=== PATIENT | female | born 1970 | race Caucasian/White ===

== ENCOUNTER → 2020-03-02 07:41 | Outpatient (BNVA) | payer MEDICAID, SELFPAY | PROVIDERS: Family Provider Internal Medicine; Visit Provider Nurse Practitioner Psychiatric/Mental Health | DX: F33.2 Major depressive disorder, recurrent severe without psychotic features (principal); F41.1 Generalized anxiety disorder; F43.12 Post-traumatic stress disorder, chronic; F17.210 Nicotine dependence, cigarettes, uncomplicated | CPT/HCPCS: 99214 ==

== ENCOUNTER → 2020-04-13 07:37 | Outpatient (BNVA) | payer MEDICAID, SELFPAY | PROVIDERS: Family Provider Internal Medicine; Visit Provider Nurse Practitioner Psychiatric/Mental Health | DX: F33.2 Major depressive disorder, recurrent severe without psychotic features (principal); F41.1 Generalized anxiety disorder; F43.12 Post-traumatic stress disorder, chronic; F17.210 Nicotine dependence, cigarettes, uncomplicated | CPT/HCPCS: 99213 ==

== ENCOUNTER 2020-06-02 15:29 | Emergency (ER) | payer MEDICAID, SELFPAY ==
[2020-06-02 15:30] VITALS: BMI 38.0
[2020-06-02 15:34] VITALS: BP 165/106; PULSE 79; RESP 18; TEMP 36.9; O2SAT 96
--- NOTE | 2020-06-02 15:47 | ECG_ITS ---
[facility] Test Date: 2020-06-02 Pat Name: Guera Miles Department: Room: Gender: Female Flat Locker: : 1970 Requested By: Mckinley Dalal I Order Number: [id number] Ailyn MD: Katia Portillo M.D. Measurements Intervals [place] Rate: 73 P: 51 FL: 152 QRS: 13 QRSD: 82 T: 31 QT: 371 QTc: 409 Interpretive Statements SINUS RHYTHM No previous ECG available for comparison Electronically Signed On 06-03-2020 0:21:24 CDT by Katia Portillo M.D. [id number] f
--- NOTE | 2020-06-02 15:47 | XRR_ITS ---
PROCEDURE INFORMATION: Exam: XR Chest, 1 View Exam date and time: 06/02/2020 4:26 PM Age: 50 years old Clinical indication: Chest pain; Type not specified; Additional info: Chest painx 2 days TECHNIQUE: Imaging protocol: XR of the chest Views: 1 view. COMPARISON: No relevant prior studies available. FINDINGS: Lungs: Unremarkable. No consolidation. Pleural space: Unremarkable. No pleural effusion. No pneumothorax. Heart/Mediastinum: Unremarkable. No cardiomegaly. Bones/joints: Unremarkable. XR/XR chest 1V portable [id number] IMPRESSION: No acute findings.
--- NOTE | 2020-06-02 15:50 | ED_ITS ---
HPI - Chest Pain General: Chief Complaint: Chest Pain Stated Complaint: CHEST PAIN X 2 DAYS Time Seen by Provider: 06/02/20 15:42 Source: patient and EMS Mode of arrival: EMS Limitations: no limitations History of Present Illness: HPI narrative: She also feels dizzy. She smokes but she is trying to quit. complaint: chest pain Onset (ago): day(s) (2) Timing of current episode: constant Prior episodes: No Onset: during rest Pain location: substernal Pain radiation: neck and left shoulder Severity: severe Quality: sharp Relieving factors: nothing Exacerbating factors: nothing Associated symptoms: Reports dyspnea and nausea; Deny fever(s) or palpitations Treatment prior to arrival: none Review of Systems General: Reports: 10 or more systems reviewed and unremarkable except in HPI and below Const: Denies: fever(s), chills or body aches Eyes: Denies: change in vision or blurry vision ENMT: Denies: throat pain, enlarged tonsils, odynophagia, hoarseness, mouth pain or swelling of lips/tongue Card: Reports: chest pain; Denies: palpitations, irregular heart rhythm, edema or swelling of feet/ankles Resp: Reports: dyspnea GI: Reports: nausea : Denies: flank pain, difficulty voiding, dysuria, urinary frequency, urinary urgency or urinary hesitancy Musc: Denies: neck pain, back pain or extremity swelling Skin/Breast: Denies: rash, pruritus or erythema Neuro: Reports: dizziness; Denies: headache(s), numbness in extremities or weakness in extremities Endo: Denies: polyuria, polydipsia or tired all the time [facility] ED PFSH: Medical History Chronic post-traumatic stress disorder Fibromyalgia Generalized anxiety disorder Major depressive disorder, recurrent severe without psychotic features Nicotine dependence, cigarettes, uncomplicated Physical Exam Const: COMMON NORMALS: no acute distress, average body habitus, patient oriented x3, no limitations, healthy appearing, alert and well nourished HENMT: COMMON NORMALS: normocephalic, atraumatic and moist oral mucous membranes HEAD & SCALP: normocephalic and atraumatic Eye: COMMON NORMALS: Equal, round and reactive pupils present, EOMs intact bilaterally, conjunctivae normal and no scleral icterus CONJUNCTIVA: Yes conjunctivae normal PUPIL: Yes Equal, round and reactive pupils present Neck/C-Spine: COMMON NORMALS: full ROM, supple, no meningeal signs, no JVD and No carotid bruits Chest: COMMONS NORMALS: normal inspection of the chest and normal palpation of entire chest wall Resp: COMMON NORMALS: normal respiratory effort, No retractions, No use of accessory muscles, clear to auscultation bilaterally and percussion normal AUSCULTATION: clear to auscultation bilaterally PERCUSSION: percussion normal Cardio: COMMON NORMALS: no JVD, regular rate, regular rhythm, S1 normal heart sound present, S2 normal heart sound present, No gallops present (Cardio), No clicks present (Cardio), No murmurs present (Cardio), No rub (Cardio) and Peripheral pulses 2+ throughout RATE: regular rate RHYTHM: regular rhythm HEART SOUNDS: S1 normal heart sound present and S2 normal heart sound present PERIPHERAL PULSES: Peripheral pulses 2+ throughout GI: COMMON NORMALS: Normal to inspection, nondistended, normoactive bowel sounds present, Soft to palpation, non-tender, No hepatosplenomegaly present, no masses and no bruits PALPATION: Yes Soft to palpation and Yes No hepatosplenomegaly present : COMMON NORMALS: Yes no CVA tenderness BLADDER/KIDNEY EXAM: Yes no CVA tenderness Back/Pelvis: COMMON NORMALS: no CVA tenderness Extremity: COMMON NORMALS: normal to inspection, full ROM, capillary refill normal, no calf tenderness and no pedal edema Neuro: COMMON NORMALS: patient oriented x3 SENSORIUM/ORIENTATION: Yes alert MENINGEAL SIGNS: Yes no meningeal signs Psych: MOOD & AFFECT: Yes anxious Skin: COMMON NORMALS: no rashes or lesions noted, no wounds, turgor normal, no jaundice, no petechiae and no mottling GENERAL SKIN EXAM: no rashes or lesions noted and turgor normal Course Reevaluation(s): Reevaluation #1: Discussed her lab and imaging findings with her. Troponin negative, other labs unremarkable. Chest x-ray negative. However she obtained relief following the nitro and I therefore think she will benefit from a stress test. Will order an outpatient stress test and depending on the results her primary care provider will refer her for further management. I discussed her heart score with her and explained that she is low risk. She is advised to return for any concerns. She voiced understanding and is in agreement with the plan. Time: 17:00 Vital Signs: Vital signs: Vital Signs Temperature 98.5 F 06/02/20 15:34 Pulse Rate 79 06/02/20 15:34 Respiratory Rate 18 06/02/20 15:34 Blood Pressure 165/106 06/02/20 15:34 Pulse Oximetry 96 06/02/20 15:34 MDM - Chest Pain MDM Narrative: Medical decision making narrative: 50-year-old female patient who presents with chest pain. Chest pain resolved following nitroglycerin sublingual. Baseline troponin was negative. HEART score is 3 (2 points for risk factors and one-point for age). Referral was made for outpatient stress test. She will follow-up with her primary care provider Lab Data: Labs: Lab Results 06/02/20 06/02/20 06/02/20 Range/Units 15:59 15:59 15:59 WBC 12.6 H (4.0-10.0) 10^3/ uL RBC 4.80 (4.1-5.3) 10^6/u L Hgb 15.3 (11.5-15.3) g/dL Hct 45.6 (37.0-47.0) % MCV 95.0 (81-99) fL MCH 31.9 (28.0-34.0) pg MCHC 33.6 (30.0-36.0) g/dL RDW 12.2 (12.1-15.1) % Plt Count 287 (130-400) 10^3/c mm MPV 9.7 (7.4-10.4) fL Neut % (Auto) 60.9 % Lymph % (Auto) 32.1 % [place] % (Auto) 4.0 % Eos % (Auto) 2.0 % Baso % (Auto) 0.6 % Neut # (Auto) 7.67 (1.8-7.7) 10^3/u L Lymph # (Auto) 4.1 (0.8-4.8) 10^3/u L [place] # (Auto) 0.5 (0.2-0.9) 10^3/u L Eos # (Auto) 0.3 (0.0-0.8) 10^3/u L Baso # (Auto) 0.1 (0.0-0.1) 10^3/u L Nucleated RBC % (a uto) 0 % Nucleated RBCs # 0.0 /100WBC PT 12.00 (10.5-13.3) SECO NDS INR 0.86 (0.8-1.2) D-Dimer <= 0.27 (0-0.59) ug/mIFE U Sodium 134 L (136-145) mmol/L Potassium 3.5 (3.5-5.1) mmol/L Chloride 98 (98-107) mmol/L Carbon Dioxide 23 (22-29) mmol/L Anion Gap 16.5 (5-19) BUN 6 (6-20) mg/dL Creatinine 0.8 (0.5-0.9) mg/dL GFR Calculation 76.2 L (90-130) mL/min Glucose 105 (65-115) mg/dL Calculated Osmolal ity 274 L (285-295) mOsm/k g Calcium 9.5 (8.5-10.5) mg/dL Total Bilirubin 0.5 (0.15-1.2) mg/dL AST 39 H (0-32) U/L ALT 53 H (0-33) U/L Alkaline Phosphata se 80 (35-105) IU/L Troponin T Baselin e (0-10) ng/L NT-Pro-B Natriuret Pep 23 (0-125) pg/mL Total Protein 7.6 (6.6-8.7) g/dL Albumin 4.6 (3.5-5.2) g/dL Globulin 3.0 (1.3-4.6) g/dL Lipase 16 (13-60) U/L 06/02/20 Range/Units 15:59 WBC (4.0-10.0) 10^3/ uL RBC (4.1-5.3) 10^6/u L Hgb (11.5-15.3) g/dL Hct (37.0-47.0) % MCV (81-99) fL MCH (28.0-34.0) pg MCHC (30.0-36.0) g/dL RDW (12.1-15.1) % Plt Count (130-400) 10^3/c mm MPV (7.4-10.4) fL Neut % (Auto) % Lymph % (Auto) % [place] % (Auto) % Eos % (Auto) % Baso % (Auto) % Neut # (Auto) (1.8-7.7) 10^3/u L Lymph # (Auto) (0.8-4.8) 10^3/u L [place] # (Auto) (0.2-0.9) 10^3/u L Eos # (Auto) (0.0-0.8) 10^3/u L Baso # (Auto) (0.0-0.1) 10^3/u L Nucleated RBC % (a uto) % Nucleated RBCs # /100WBC PT (10.5-13.3) SECO NDS INR (0.8-1.2) D-Dimer (0-0.59) ug/mIFE U Sodium (136-145) mmol/L Potassium (3.5-5.1) mmol/L Chloride (98-107) mmol/L Carbon Dioxide (22-29) mmol/L Anion Gap (5-19) BUN (6-20) mg/dL Creatinine (0.5-0.9) mg/dL GFR Calculation (90-130) mL/min Glucose (65-115) mg/dL Calculated Osmolal ity (285-295) mOsm/k g Calcium (8.5-10.5) mg/dL Total Bilirubin (0.15-1.2) mg/dL AST (0-32) U/L ALT (0-33) U/L Alkaline Phosphata se (35-105) IU/L Troponin T Baselin e 6 (0-10) ng/L NT-Pro-B Natriuret Pep (0-125) pg/mL Total Protein (6.6-8.7) g/dL Albumin (3.5-5.2) g/dL Globulin (1.3-4.6) g/dL Lipase (13-60) U/L Imaging Data^: CXR: Radiologist's impression: [address] [address] XRay Report Signed Patient: Guera MilesKb #: [id number] : 1970Acct#:[id number] Age/Sex: 50 / FADM Date: 06/02/20 Loc: ERRoom/Bed: Attending Dr: Ordering Provider/Ordering MD: Mckinley Dalal MD, [facility] Date of Service: 06/02/20 Procedure(s): XR chest 1V portable [id number] Accession Number(s): [id number] Report Number: [id number] PROCEDURE INFORMATION: Exam: XR Chest, 1 View Exam date and time: 06/02/2020 4:26 PM Age: 50 years old Clinical indication: Chest pain; Type not specified; Additional info: Chest painx 2 days TECHNIQUE: Imaging protocol: XR of the chest Views: 1 view. COMPARISON: No relevant prior studies available. FINDINGS: Lungs: Unremarkable. No consolidation. Pleural space: Unremarkable. No pleural effusion. No pneumothorax. Heart/Mediastinum: Unremarkable. No cardiomegaly. Bones/joints: Unremarkable. XR/XR chest 1V portable [id number] IMPRESSION: No acute findings. Dictated By:Augustus Cristobal MD Signed By:Augustus Cristobal MDSigned Date/Time:06/02/201655 DD/ 54 EKG Data^: EKG 1: Attestation: I personally reviewed and interpreted this EKG as follows: EKG interpretation date: 06/02/20 EKG interpretation time: 15:52 Prior EKG tracings: not available for review Interpretation: Normal sinus rhythm. Heart rate 73 bpm. Normal axis. No ST changes. No STEMI. Discharge Plan Discharge Patient Disposition: Home Clinical Impression: Angina at rest Condition: Stable Prescriptions: Continued bupropion HCl [Wellbutrin SR] 200 mg tablet sustained-release 12 hr 200 mg PO QAM Qty: 90 RF: 2 gabapentin 300 mg capsule 300 mg PO TID Qty: 90 RF: 2 topiramate [Topamax] 50 mg tablet 50 mg PO BID Qty: 180 RF: 2 buspirone 10 mg tablet 10 mg PO TID Qty: 270 RF: 2 Chantix 1 mg tablet 1 mg PO BID Qty: 56 RF: 2 No Action Multiple Vitamins Tablet 1 tab PO DAILY RF: 0 albuterol sulfate 2.5 mg /3 mL (0.083 %) Solution For Nebulization 2.5 mg INHALATION Q4H PRN (Reason: Shortness Of Breath) RF: 0 Zyrtec 10 mg Tablet 10 mg PO DAILY RF: 0 Lipitor 10 mg Tablet 10 mg PO DAILY RF: 0 clobetasol 0.05 % Cream See Rx Instructions .ROUTE .COMPLEX RF: 0 omeprazole 40 mg Capsule,Delayed Release(Dr/Ec) 40 mg PO BID RF: 0 ibuprofen 200 mg Tablet 400 mg PO PRN RF: 0 Singulair 10 mg Tablet 10 mg PO DAILY RF: 0 ProAir HFA 90 mcg/actuation Hfa Aerosol Inhaler 2 puff INHALATION Q4H PRN (Reason: Shortness Of Breath) RF: 0 Flonase Allergy Relief 50 mcg/actuation [place],Suspension 1 spray INTRANASAL BID PRN (Reason: unknown) RF: 0 Spiriva with HandiHaler 18 mcg Capsule, W/Inhalation Device 1 cap INHALATION DAILY RF: 0 fenofibrate nanocrystallized 48 mg tablet 48 mg PO DAILY RF: 0 Combivent Respimat 20-100 mcg/actuation Mist 2 puff INHALATION BID RF: 0 ropinirole 1 mg tablet 1 mg PO BEDTIME RF: 0 trazodone 150 mg tablet 150 mg PO BEDTIME PRN (Reason: sleep) RF: 0 prazosin 2 mg capsule 2 mg PO BEDTIME RF: 0 Cymbalta 60 mg capsule,delayed release(DR/EC) See Rx Instructions .ROUTE .COMPLEX RF: 0 Discharge Orders: Discharge Order (Routine); Ordered 06/02/20 Ordered By: Mckinley Dalal Referrals: Natacha Grimes [Primary Care Provider] - 1-3 days Discharge Activity: Increase activity as tolerated Patient Instructions: Chest Pain (ED) Activity Restrictions/Additional Instructions: Return for any new or worsening symptoms. You will be scheduled for an outpatient stress test to see if you need further evaluation by enrollment services vice president. Follow-up with your primary care provider within 3 days. Coding Level of Care Code ED Storage Facility Housekeeper for Radhag Fwd Exam Comprehensive
[2020-06-02] MEDS: aspirin 81 mg Chew Tablet 324 MG PO (15:54)
[2020-06-02] MEDS: nitroglycerin 0.4 mg sublingual Tablet SUBLINGUAL ×3 (16:00→16:12)
[2020-06-02 16:06] VITALS: BP 130/91; PULSE 88; RESP 15; O2SAT 93
[2020-06-02 16:07] LABS: Basophils # 0.1 10^3/uL (0.0-0.1); Basophils % 0.6 %; Eosinophils # 0.3 10^3/uL (0.0-0.8); Hematocrit 45.6 % (37.0-47.0); Hemoglobin 15.3 g/dL (11.5-15.3); Lymphocytes # 4.1 10^3/uL (0.8-4.8); Lymphocytes % 32.1 %; Mean Corpuscular HGB Conc 33.6 g/dL (30.0-36.0); Mean Corpuscular Hemoglobin 31.9 pg (28.0-34.0); Mean Platelet Volume 9.7 fL (7.4-10.4); Monocytes # 0.5 10^3/uL (0.2-0.9); Neutrophils # 7.67 10^3/uL (1.8-7.7); Neutrophils % 60.9 %; Nucleated Red Blood Cells % 0 %; Platelet Count 287 10^3/cmm (130-400); Red Cell Distribution Width 12.2 % (12.1-15.1); White Blood Count 12.6 10^3/uL (4.0-10.0)
--- NOTE | 2020-06-02 16:15 | PC.NURSE ---
AFTER 3 NITRO PT STATES THAT HER PAIN IS DOWN TO A 1 FROM A 3.
[2020-06-02 16:30] LABS: INR 0.86 (0.8-1.2)
[2020-06-02 16:33] LABS: D Dimer <= 0.27 ug/mIFEU (0-0.59); Troponin(5th) Baseline 6 ng/L (0-10)
[2020-06-02 16:42] LABS: Alanine Aminotransferase 53 U/L (0-33); Albumin Level 4.6 g/dL (3.5-5.2); Alkaline Phosphatase 80 IU/L (35-105); Anion Gap 16.5 (5-19); Aspartate Amino Transferase 39 U/L (0-32); Blood Urea Nitrogen 6 mg/dL (6-20); Calcium 9.5 mg/dL (8.5-10.5); Carbon Dioxide 23 mmol/L (22-29); Chloride 98 mmol/L (98-107); Glomerular Filtration Rate 76.2 mL/min (90-130); Glucose 105 mg/dL (65-115); Lipase 16 U/L (13-60); NT Pro B Type Natriuretic Pept 23 pg/mL (0-125); Osmolality Calculated 274 mOsm/kg (285-295); Potassium 3.5 mmol/L (3.5-5.1); Sodium 134 mmol/L (136-145); Total Bilirubin 0.5 mg/dL (0.15-1.2); Total Protein 7.6 g/dL (6.6-8.7)
[2020-06-02 17:00] VITALS: BP 141/80; PULSE 81; RESP 15; O2SAT 95
[2020-06-02 17:30] VITALS: BP 130/88; PULSE 71; RESP 16; O2SAT 95
--- NOTE | 2020-06-03 11:19 | PC.SOCIAL ---
Spoke with Mehnaz at [facility]. She indicates they did receive the order for stress test. No further needs known.
--- NOTE | 2020-06-11 08:39 | DCPLANNER ---
Patients stress test ordered from the ED has been cancelled due to insurance denial.
== END 2020-06-02 17:47 | disposition home or self-care (01) ==
PROVIDERS: Emergency Provider Family Medicine; PCP Internal Medicine
DX: I20.8 Other forms of angina pectoris (principal)
CPT/HCPCS: 12345; 36415; 71045; 80053; 83690; 83880; 84484; 85025; 85378; 85610; 93005; 99283; 99284

== ENCOUNTER → 2020-07-06 10:26 | Outpatient (BNVA) | payer MEDICAID, SELFPAY | PROVIDERS: PCP Internal Medicine; Visit Provider Nurse Practitioner Psychiatric/Mental Health | DX: F33.2 Major depressive disorder, recurrent severe without psychotic features (principal); F41.1 Generalized anxiety disorder; F43.12 Post-traumatic stress disorder, chronic; F17.210 Nicotine dependence, cigarettes, uncomplicated | CPT/HCPCS: 99214 ==

== ENCOUNTER 2020-09-16 20:00 | Outpatient (CLI) | payer MEDICAID, SELFPAY | END 2020-09-16 20:01 | disposition home or self-care (01) | LOC: SLEEP 09-17 10:12 | PROVIDERS: PCP Internal Medicine; Visit Provider Nurse Practitioner | DX: G47.30 Sleep apnea, unspecified (principal) | CPT/HCPCS: 95810 ==

== ENCOUNTER → 2021-06-02 07:32 | Outpatient (BNVA) | payer MEDICAID, SELFPAY | PROVIDERS: PCP Internal Medicine; Visit Provider Nurse Practitioner Psychiatric/Mental Health | DX: F33.2 Major depressive disorder, recurrent severe without psychotic features (principal); F41.1 Generalized anxiety disorder; F43.12 Post-traumatic stress disorder, chronic; F17.210 Nicotine dependence, cigarettes, uncomplicated; Z79.899 Other long term (current) drug therapy | CPT/HCPCS: 99214 ==

== ENCOUNTER → 2021-09-22 08:40 | Outpatient (BNVA) | payer MEDICAID, SELFPAY | PROVIDERS: PCP Internal Medicine; Visit Provider Nurse Practitioner Psychiatric/Mental Health | DX: F33.2 Major depressive disorder, recurrent severe without psychotic features (principal); F43.12 Post-traumatic stress disorder, chronic; F17.210 Nicotine dependence, cigarettes, uncomplicated; Z79.899 Other long term (current) drug therapy; F41.1 Generalized anxiety disorder | CPT/HCPCS: 99214 ==

== ENCOUNTER 2021-10-13 08:45 | Outpatient (CLI) | payer MEDICAID, SELFPAY ==
--- NOTE | 2021-10-13 08:54 | MR_ITS ---
WS: [id number] MRI LUMBAR SPINE NONCONTRAST HISTORY: LUMBOSACRAL Spondylosis; sacroiliitis COMPARISON: 09/24/2006 TECHNIQUE: Sagittal and axial multisequence imaging is submitted. Mild straightening of the normal lumbar lordosis. 2 mm anterolisthesis of L4. Mild disc space desiccation at L4-5 and L5-S1 without narrowing. Conus terminates normally at L1. Edema and increased T2 signal within the soft tissues on the LEFT at the L3-4 level may be due to rec ent facet joint injection. L1-L2: Mild annular disc bulging. Moderate bilateral facet joint arthritis encroaching into the poste rior lateral thecal sac. No high-grade stenosis. L2-L3: Mild annular disc bulging with mild facet and ligamentum flavum hypertrophy. No stenosis. L3-L4: Mild bilateral facet joint arthritis. Fluid in the facet joints bilaterally with moderate liga mentum flavum hypertrophy. Encroachment into the subarticular recesses bilaterally in the proximal fo raminal on the LEFT. Mild LEFT subarticular and foraminal stenosis. L4-L5: Mild annular disc bulging is asymmetric. Slightly greater disc bulging to the LEFT. Mild defor mity of the LEFT lateral thecal sac. Moderate ligamentum flavum and facet arthritis with fluid in the facet joints. Very mild widening of the RIGHT facet joint. There is significant narrowing of the LEF T proximal foramen and subarticular recess. Significant encroachment upon the LEFT traversing L5 nerv e root. Mild LEFT foraminal narrowing due to disc disease and facet arthritis. L5-S1: Mild disc bulging. No stenosis or focal disc protrusion. RIGHT renal cyst measures 2.5 cm. Retroaortic LEFT renal vein. MR/MR lumbar spine wo con* [id number] IMPRESSION: 1. Asymmetric disc bulging at L4-5 disc and facet disease encroaching into the LEFT subarticular recess and proximal foramina with encroachment upon the elise ersing L5 nerve root. 2. Mild LEFT subarticular and foraminal stenosis L3-4 predominantly due to fac et disease. 3. Fluid in the facet joints bilaterally L3-4 and L4-5 with moderate facet delia nt arthritis. 4. Moderate bilateral facet joint arthritis at L1-2 encroaching into the poste rior lateral thecal sac without stenosis.
== END 2021-10-13 08:46 | disposition home or self-care (01) ==
LOC: RADSHAW 08:48
PROVIDERS: PCP Internal Medicine; Visit Provider Nurse Practitioner Family
DX: M47.817 Spondylosis without myelopathy or radiculopathy, lumbosacral region (principal); M46.1 Sacroiliitis, not elsewhere classified; M51.26 Other intervertebral disc displacement, lumbar region; M47.816 Spondylosis without myelopathy or radiculopathy, lumbar region
CPT/HCPCS: 72148

== ENCOUNTER → 2022-03-09 15:52 | Outpatient (BNVA) | payer MEDICAID, SELFPAY | PROVIDERS: PCP Internal Medicine; Visit Provider Nurse Practitioner Psychiatric/Mental Health | DX: F33.2 Major depressive disorder, recurrent severe without psychotic features (principal); F41.1 Generalized anxiety disorder; F43.12 Post-traumatic stress disorder, chronic; F17.210 Nicotine dependence, cigarettes, uncomplicated; Z79.899 Other long term (current) drug therapy | CPT/HCPCS: 99214 ==

== ENCOUNTER 2022-07-24 14:10 | Outpatient (CLI) | payer MEDICAID, SELFPAY ==
--- NOTE | 2022-07-24 14:37 | ECG_ITS ---
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 Measurements Intervals [place] Rate: 82 P: 55 RI: 176 QRS: 7 QRSD: 85 T: 51 QT: 365 QTc: 428 Interpretive Statements SINUS RHYTHM POSSIBLE LEFT ATRIAL ENLARGEMENT [-0.1mV P-WAVE IN V1/V2] NONSPECIFIC T-WAVE ABNORMALITY Compared to ECG 06/02/2020 15:52:54 T-wave abnormality now present Electronically Signed On 07-24-2022 18:34:55 CDT by Mario Flaherty M.D. [id number] f
== END 2022-07-24 14:11 | disposition home or self-care (01) ==
LOC: RT 14:12
PROVIDERS: PCP Internal Medicine; Visit Provider Specialist
DX: H65.03 Acute serous otitis media, bilateral (principal); R94.31 Abnormal electrocardiogram [ECG] [EKG]
CPT/HCPCS: 93005

== ENCOUNTER 2022-07-26 12:07 | Emergency (ER) | payer MEDICAID, SELFPAY ==
[2022-07-26 12:14] VITALS: BP 71/48; PULSE 114; RESP 14; TEMP 37.1; O2SAT 95; BMI 37.0
--- NOTE | 2022-07-26 12:53 | ECG_ITS ---
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 Measurements Intervals [place] Rate: 90 P: 53 MT: 170 QRS: 14 QRSD: 76 T: 56 QT: 344 QTc: 422 Interpretive Statements SINUS RHYTHM LOW QRS VOLTAGE IN PRECORDIAL LEADS [QRS DEFLECTION < 1.0 mV IN CHEST LEADS] NONSPECIFIC T-WAVE ABNORMALITY Compared to ECG 07/24/2022 14:19:37 Low QRS voltage now present T-wave abnormality still present Electronically Signed On 07-26-2022 20:24:42 CDT by Radha Mukherjee M.D. [id number]
[2022-07-26] MEDS: sodium chloride 0.9% 500 ML IV (13:11)
[2022-07-26 13:22] LABS: Basophils # 0.1 10^3/uL (0.0-0.1); Basophils % 0.4 %; Eosinophils # 0.1 10^3/uL (0.0-0.8); Eosinophils % 0.5 %; Hematocrit 44.6 % (37.0-47.0); Hemoglobin 15.7 g/dL (11.5-15.3); Lymphocytes # 3.4 10^3/uL (0.8-4.8); Lymphocytes % 26.9 %; Mean Corpuscular HGB Conc 35.2 g/dL (30.0-36.0); Mean Corpuscular Hemoglobin 32.2 pg (28.0-34.0); Mean Corpuscular Volume 91.6 fl (81-99); Mean Platelet Volume 10.1 fL (7.4-10.4); Monocytes # 0.6 10^3/uL (0.2-0.9); Monocytes % 4.6 %; Neutrophils # 8.37 10^3/uL (1.8-7.7); Neutrophils % 67.3 %; Nucleated Red Blood Cells % 0 %; Platelet Count 297 10^3/cmm (130-400); Red Blood Count 4.87 10^6/uL (4.1-5.3); Red Cell Distribution Width 12.2 % (12.1-15.1); White Blood Count 12.4 10^3/uL (4.0-10.0)
[2022-07-26 13:31] LABS: Alanine Aminotransferase 31 U/L (0-33); Albumin Level 4.3 g/dL (3.5-5.2); Alkaline Phosphatase 55 U/L (35-105); Anion Gap 17.8 (5-19); Aspartate Amino Transferase 21 U/L (0-32); Blood Urea Nitrogen 19 mg/dL (6-20); Carbon Dioxide 22 mmol/L (22-29); Chloride 100 mmol/L (98-107); Globulin 3.1 g/dL (1.3-4.6); Glomerular Filtration Rate 27.9 mL/min (90-130); Glucose 144 mg/dL (65-115); Osmolality Calculated 287 mOsm/kg (285-295); Potassium 3.8 mmol/L (3.5-5.1); Sodium 136 mmol/L (136-145); Total Bilirubin 0.3 mg/dL (0.15-1.2); Total Protein 7.4 g/dL (6.6-8.7)
--- NOTE | 2022-07-26 13:41 | CT_ITS ---
WS: [id number] CT HEAD TECHNIQUE: Noncontrast CT of the head obtained from the skullbase to the vertex. CLINICAL INFORMATION: repeated syncope with saenz COMPARISON: None. DLP: 1109.[address] scans at [facility] use at least one of these dose optimization techniques: automated e xposure control; mA and/or kV adjustment per patient size (includes targeted exams where dose is matc hed to clinical indication); or iterative reconstruction. FINDINGS: No evidence of intracranial hemorrhage or mass effect. Ventricular system and basal cisterns are gutierrez nt. No extra-axial fluid collections. No evidence of mass or mass effect. Normal graham-white different iation. Partial opacification RIGHT mastoid air cells and RIGHT middle ear. LEFT mastoid air cells are well a erated. CT/CT head wo con* [id number] IMPRESSION: 1. No evidence of intracranial hemorrhage or mass effect. 2. Partial opacification RIGHT mastoid air cells and RIGHT middle ear. LEFT ma stoid air cells are well aerated. 3. No acute intracranial findings.
--- NOTE | 2022-07-26 13:41 | CT_ITS ---
WS: [id number] CT ABDOMEN PELVIS TECHNIQUE: Noncontrast CT of the abdomen and pelvis with coronal and sagittal reformatted images. CLINICAL INFORMATION: abd pain and vomiting COMPARISON: None. DLP: 936.[address] scans at [facility] use at least one of these dose optimization techniques: automated e xposure control; mA and/or kV adjustment per patient size (includes targeted exams where dose is matc hed to clinical indication); or iterative reconstruction. FINDINGS: Hepatomegaly. Normal spleen. Normal GE junction. Stomach and duodenum appear normal. Lung bases are w ell aerated. Slight bibasilar atelectasis. Noncalcified nodule LEFT lower lobe measuring 7 mm. Recomm end 6 month follow-up chest CT. Noncontrast pancreas is normal. Adrenal glands are normal. Normal caliber abdominal aorta. Retroaorti c LEFT renal vein. Sigmoid diverticulosis. No evidence of acute diverticulitis. No evidence of high-grade small or large bowel obstruction. Normal appendix in RIGHT lower quadrant. No abdominal or pelvic lymphadenopathy. No free fluid in the pelvis. Tiny fat-containing abdominal hernia. Slight anterolisthesis L4 on L5. R etroverted uterus. No obstructing renal or ureteral calculi. RIGHT renal cyst measuring 2.[address]/CT abdomen pelvis wo con [id number] IMPRESSION: 1. Normal appendix in the RIGHT lower quadrant. No evidence of acute appendici tis. 2. Sigmoid diverticulosis. No evidence of acute diverticulitis. No obstructing renal or ureteral calculi. No hydronephrosis. 3. RIGHT renal cyst measuring 2.5 CM. 4. Noncalcified nodule LEFT lower lobe measuring 7 mm. Recommend 6 month follo w-up chest CT. 5. Hepatomegaly. 6. No acute abdominal or pelvic findings.
--- NOTE | 2022-07-26 13:42 | ED_ITS ---
HPI - Syncope General: Chief Complaint: Syncope Stated Complaint: Fell down and feeling dizziness Time Seen by Provider: 07/26/22 13:03 Source: patient and family Mode of arrival: ambulatory Limitations: no limitations History of Present Illness: This patient presents to our emergency department because of 2 episodes of syncope early this morning late last night. She states that she felt nauseated and got up to go to the bathroom and next thing she remembers is that she was on the floor. She denies any prodrome other than nausea. She states she had no palpitations, headache preceding her fall etc. She denies suffering any injury as a result of that initial fall. She states that she then got up and attempted to go back to her bedroom and the next thing she knew she was on the floor again. Again no prodrome to that episode either. States she has been ill over the past week or so with vague abdominal symptoms included some loose stools as well as some vomiting. She states she does have a history of gastroesophageal reflux disease and takes omeprazole for that condition. She does relate that she had some dark stools about a month ago but has not had any dark stool since that time and does not have any history of bright red blood per rectum. She has had prior C-sections but no other abdominal surgeries. States she has had a mild headache recently but not unusual for her. She states that she was around other members of the family last week who are ill with viral syndrome sore throat etc. She has diabetes and states her blood sugars been normal. She denies any history of cardiac arrhythmias, prior syncope etc. Is a relates that she has had relatively poor intake for the past several days but has been taking all her medications including her antihypertensive. complaint: loss of consciousness Prodromal symptoms: none Context: getting out of bed and standing up Associated symptoms: Reports abdominal pain and headache(s); Deny chest pain, fever(s) or vertigo Review of Systems Const: Denies: fever(s), chills or body aches Eyes: Denies: change in vision ENMT: Denies: throat pain, odynophagia, nasal discharge or nasal congestion Card: Reports: syncope; Denies: chest pain, palpitations, irregular heart rhythm or dyspnea on exertion Resp: Denies: dyspnea, productive cough or non-productive cough GI: Reports: abdominal pain, vomiting and diarrhea; Denies: hematemesis or hematochezia : Denies: flank pain, difficulty voiding, dysuria or urinary frequency Musc: Denies: neck pain, back pain or extremity pain Skin/Breast: Denies: rash or pruritus Neuro: Reports: headache(s) and dizziness; Denies: numbness in extremities, weakness in extremities, vertigo, Slurred speech present or seizure-like activity Psych: Denies: anxiety or depression Akshat/Lymph: Denies: easy bruising or easy bleeding PFSH ED PFSH: Medical History Chronic post-traumatic stress disorder Diabetes Fibromyalgia Generalized anxiety disorder Hyperlipidemia Hypertension Major depressive disorder, recurrent severe without psychotic features Medical marijuana use Chronic pain Nicotine dependence, cigarettes, uncomplicated Psychiatric care Social History Smoking and tobacco status: former smoker Physical Exam Narrative: EXAM NARRATIVE: She is in no acute distress found to be lying in bed receiving IV fluids cooperative and goal-directed in her speech. Const: COMMON NORMALS: no acute distress, average body habitus and patient oriented x3 GENERAL APPEARANCE: cooperative and comfortable ORIENTATION/CONSCIOUSNESS: Yes awake HENMT: COMMON NORMALS: normocephalic and atraumatic HEAD & SCALP: normocephalic and atraumatic FACE & SINUS: normal facial exam Eye: COMMON NORMALS: Equal, round and reactive pupils present, EOMs intact bilaterally and conjunctivae normal CONJUNCTIVA: Yes conjunctivae normal PUPIL: Yes Equal, round and reactive pupils present Neck/C-Spine: COMMON NORMALS: full ROM CERVICAL SPINE: Yes cervical ROM normal, No Cervical spine tenderness, No step off deformity, No Paracervical muscle tenderness, No Paracervical spasm and No Trapezius muscle tenderness Chest: COMMONS NORMALS: normal inspection of the chest Resp: COMMON NORMALS: normal respiratory effort, No retractions, No use of accessory muscles and clear to auscultation bilaterally AUSCULTATION: clear to auscultation bilaterally Cardio: COMMON NORMALS: regular rate, regular rhythm, No murmurs present (Cardio) and Peripheral pulses 2+ throughout RATE: regular rate RHYTHM: regular rhythm PERIPHERAL PULSES: Peripheral pulses 2+ throughout GI: COMMON NORMALS: Normal to inspection, nondistended, normoactive bowel sounds present, Soft to palpation, no masses and no bruits PALPATION: Yes Soft to palpation OTHER: She has mild tenderness in the epigastrium but otherwise no areas of localized tenderness. No rebound, no guarding. : COMMON NORMALS: Yes no CVA tenderness BLADDER/KIDNEY EXAM: Yes no CVA tenderness Back/Pelvis: COMMON NORMALS: no CVA tenderness, thoracic and lumbar spine normal to inspection, no thoracic nor lumbar tenderness and straight leg raise negative bilaterally Extremity: COMMON NORMALS: normal to inspection, capillary refill normal, no joint enlargement, no calf tenderness and no pedal edema Neuro: COMMON NORMALS: patient oriented x3, moves all extremities, no focal motor deficits, no sensory deficits noted and gait normal CRANIAL NERVES: Yes CN normal except as noted COORDINATION/BALANCE: [id number] test normal and newv-tn-[id number] test normal COORDINATION: [id number]-[id number] test normal and ixjt-[id number] test normal Psych: COMMON NORMALS: mental status grossly normal, Normal thought process present and cooperative THOUGHT PROCESS: Normal thought process present Skin: COMMON NORMALS: no rashes or lesions noted, no wounds, turgor normal and no jaundice GENERAL SKIN EXAM: no rashes or lesions noted and turgor normal Course Reevaluation(s): Reevaluation #1: Portable bedside ultrasound was used to visualize the abdominal aorta in a limited fashion. It was visualized from the subxiphoid to the bifurcation. Maximum AP diameter using the phased array probe was 1.75 cm. Maximum sagittal diameter was noted to be 1.57 cm. Time: 13:51 Reevaluation #2: Remains clinically stable. Blood pressure is improved and she feels much better at this point. Discussed current findings and their implications. We will go ahead and repeat orthostatics and allow her to ambulate and see how she feels subjectively before making a observation versus discharge recommendation. Time: 15:31 Reevaluation #3: Patient continues to do well. She ambulated about the emergency part without any difficulty. Orthostatic vital signs were acceptable. At this point I think it is reasonable for for her to be discharged in the emergency department with admonishment to make sure she increases her oral intake, stopped all her antihypertensive medication, records her blood pressures. She acknowledged those recommendations. We will also have her follow-up with her regular doctor in 7 to 10 days for repeat evaluation and a repeat creatinine to ensure that she has improvement in her kidney function which is likely related to her relative volume depletion and continued use of antihypertensives when likely unnecessary. This was all discussed with both patient and family who voiced understanding and acknowledged our discussion. Time: 16:27 Vital Signs: Vital signs: Vital Signs Temperature 98.7 F 07/26/22 12:14 Pulse Rate 71 07/26/22 15:41 Respiratory Rate 15 07/26/22 14:28 Blood Pressure 102/67 07/26/22 15:41 Pulse Oximetry 93 07/26/22 14:28 Oxygen Delivery Me thod 07/26/22 14:28 MDM - Syncope Medical Decision Making Patient who presented to our emergency department with 2 episodes of what clinically is consistent with orthostatic syncope. Imaging of her head as well as abdomen did not reveal any concerning pathology at this time. She was both orally and IV hydrated in the emergency department and had improvement in her blood pressure and no other concerning findings to include arrhythmia, anemia etc. Of note is that her creatinine is elevated and this will need to be followed to ensure that it improves and if not nephrology evaluation engaged. We will hold all antihypertensives at this time. She is stable to be discharged for outpatient care. Medical Records I reviewed the patient's medical records. Lab Data I reviewed the patient's lab results. : 07/26/22 13:05 07/26/22 13:05 Radiology Impressions Abdomen/Pelvis CT 07/26/22 13:41 IMPRESSION: 1. Normal appendix in the RIGHT lower quadrant. No evidence of acute appendicitis. 2. Sigmoid diverticulosis. No evidence of acute diverticulitis. No obstructing renal or ureteral calculi. No hydronephrosis. 3. RIGHT renal cyst measuring 2.5 CM. 4. Noncalcified nodule LEFT lower lobe measuring 7 mm. Recommend 6 month follow-up chest CT. 5. Hepatomegaly. 6. No acute abdominal or pelvic findings. Head CT 07/26/22 13:41 IMPRESSION: 1. No evidence of intracranial hemorrhage or mass effect. 2. Partial opacification RIGHT mastoid air cells and RIGHT middle ear. LEFT mastoid air cells are well aerated. 3. No acute intracranial findings. Laboratory Results WBC 12.4 10^3/uL (4.0-10.0) H 07/26/22 13:05 RBC 4.87 10^6/uL (4.1-5.3) 07/26/22 13:05 Hgb 15.7 g/dL (11.5-15.3) H 07/26/22 13:05 Hct 44.6 % (37.0-47.0) 07/26/22 13:05 MCV 91.6 fl (81-99) 07/26/22 13:05 MCH 32.2 pg (28.0-34.0) 07/26/22 13:05 MCHC 35.2 g/dL (30.0-36.0) 07/26/22 13:05 RDW 12.2 % (12.1-15.1) 07/26/22 13:05 Plt Count 297 10^3/cmm (130-400) 07/26/22 13:05 MPV 10.1 fL (7.4-10.4) 07/26/22 13:05 Neut % (Auto) 67.3 % 07/26/22 13:05 Lymph % (Auto) 26.9 % 07/26/22 13:05 [place] % (Auto) 4.6 % 07/26/22 13:05 Eos % (Auto) 0.5 % 07/26/22 13:05 Baso % (Auto) 0.4 % 07/26/22 13:05 Neut # (Auto) 8.37 10^3/uL (1.8-7.7) H 07/26/22 13:05 Lymph # (Auto) 3.4 10^3/uL (0.8-4.8) 07/26/22 13:05 Norman # (Auto) 0.6 10^3/uL (0.2-0.9) 07/26/22 13:05 Eos # (Auto) 0.1 10^3/uL (0.0-0.8) 07/26/22 13:05 Baso # (Auto) 0.1 10^3/uL (0.0-0.1) 07/26/22 13:05 Nucleated RBC % (auto) 0 % 07/26/22 13:05 Nucleated RBCs # 0.0 /100WBC 07/26/22 13:05 Sodium 136 mmol/L (136-145) 07/26/22 13:05 Potassium 3.8 mmol/L (3.5-5.1) 07/26/22 13:05 Chloride 100 mmol/L (98-107) 07/26/22 13:05 Carbon Dioxide 22 mmol/L (22-29) 07/26/22 13:05 Anion Gap 17.8 (5-19) 07/26/22 13:05 BUN 19 mg/dL (6-20) 07/26/22 13:05 Creatinine 1.9 mg/dL (0.5-0.9) H 07/26/22 13:05 GFR Calculation 27.9 mL/min (90-130) L 07/26/22 13:05 Glucose 144 mg/dL (65-115) H 07/26/22 13:05 Calculated Osmolality 287 mOsm/kg (285-295) 07/26/22 13:05 Calcium 10.0 mg/dL (8.5-10.5) 07/26/22 13:05 Total Bilirubin 0.3 mg/dL (0.15-1.2) 07/26/22 13:05 AST 21 U/L (0-32) 07/26/22 13:05 ALT 31 U/L (0-33) 07/26/22 13:05 Alkaline Phosphatase 55 U/L (35-105) 07/26/22 13:05 Total Protein 7.4 g/dL (6.6-8.7) 07/26/22 13:05 Albumin 4.3 g/dL (3.5-5.2) 07/26/22 13:05 Globulin 3.1 g/dL (1.3-4.6) 07/26/22 13:05 EKG Data EKG 1: I personally reviewed and interpreted this EKG as follows: Interpretation: Resting EKG showed a ventricular rate of 90 bpm. She had normal TN interval, QRS duration, QTc duration. Normal axis. No acute ST-T wave changes noted. Discharge Plan Discharge Patient Disposition: Home Clinical Impression: Syncope, Volume depletion, Renal insufficiency Condition: Stable Prescriptions: No Action prazosin 2 mg capsule 2 mg PO BEDTIME Qty: 30 6RF Hold Instructions: Doctor's Order Rx Instructions: Take one capsule at bedtime rosuvastatin 20 mg tablet 20 mg PO DAILY bupropion HCl [Wellbutrin SR] 200 mg tablet sustained-release 12 hr 200 mg PO QAM Qty: 90 2RF Rx Instructions: Take one tablet every morning buspirone 10 mg tablet 10 mg PO TID Qty: 270 2RF Rx Instructions: Take one tablet three times per day duloxetine [Cymbalta] 30 mg capsule,delayed release(DR/EC) 30 mg PO .morning Qty: 90 2RF Rx Instructions: Take one capsule every morning with 60 mg capsule, total dose of 90 mg duloxetine [Cymbalta] 60 mg capsule,delayed release(DR/EC) 60 mg PO .morning Qty: 90 2RF Rx Instructions: Take one capsule every morning with 30 mg capsule, total dose 90 mg. trazodone 150 mg tablet 150 mg PO BEDTIME PRN (Reason: sleep) Qty: 180 2RF Rx Instructions: Take one tablet-1 hr prior to bedtime as needed for sleep, may repeat dose in 1 hr if not asleep. gabapentin 300 mg capsule 300 mg PO TID Qty: 270 2RF Rx Instructions: Take one capsule three times per day ropinirole 1 mg tablet 2 mg PO BEDTIME Qty: 30 6RF Rx Instructions: Take two tablets at bedtime Multiple Vitamins Tablet 1 tab PO DAILY albuterol sulfate 2.5 mg /3 mL (0.083 %) Solution For Nebulization 2.5 mg INHALATION Q4H PRN (Reason: Shortness Of Breath) Zyrtec 10 mg Tablet 10 mg PO DAILY clobetasol 0.05 % Cream See Rx Instructions .ROUTE .COMPLEX Rx Instructions: apply topically as directed omeprazole 40 mg Capsule,Delayed Release(Dr/Ec) 40 mg PO BID ibuprofen 200 mg Tablet 400 mg PO PRN Singulair 10 mg Tablet 10 mg PO DAILY ProAir HFA 90 mcg/actuation Hfa Aerosol Inhaler 2 puff INHALATION Q4H PRN (Reason: Shortness Of Breath) Flonase Allergy Relief 50 mcg/actuation [place],Suspension 1 spray INTRANASAL BID PRN (Reason: unknown) Spiriva with HandiHaler 18 mcg Capsule, W/Inhalation Device 1 cap INHALATION DAILY fenofibrate nanocrystallized 48 mg tablet 48 mg PO DAILY Combivent Respimat 20-100 mcg/actuation Mist 2 puff INHALATION BID Discharge Orders: Discharge ED (Routine); Ordered 07/26/22 Ordered By: Rakesh Saleh Referrals: Natacha Grimes [Primary Care Provider] - 7-10 days (Repeat creatinine blood pressure evaluation) Discharge Diet: Advance as tolerated Discharge Activity: Increase activity as tolerated Patient Instructions: Opioid Safety, Pain Management Activity Restrictions/Additional Instructions: Do not take any of your blood pressure medication. Do not take ibuprofen. Make sure that you drink at least 2 quarts of water and/or sports drink daily in addition to your usual oral intake. Resume a normal diet as soon as possible. Check your blood pressure twice daily and record those numbers for your physician. See your regular physician in 7-10 days for reevaluation and blood draw. If you develop persistent worsening or new symptoms return to this emergency department immediately. Coding Level of Care Code ED [employer] for [employer] Martinez Exam Comprehensive
[2022-07-26 14:28] VITALS: BP 86/59; PULSE 80; RESP 15; O2SAT 93
[2022-07-26 15:41] VITALS: BP 102/67; BP 108/64; BP 94/64; PULSE 71; PULSE 74; PULSE 75
[2022-07-26 16:00] VITALS: BP 99/53; PULSE 75; RESP 15; O2SAT 93
[2022-07-26 17:01] VITALS: BP 104/80; PULSE 84; RESP 16; TEMP 36.7; O2SAT 94
[2022-07-26 17:05] VITALS: BP 104/80; PULSE 84; RESP 16; TEMP 36.7; O2SAT 94
== END 2022-07-26 17:07 | disposition home or self-care (01) ==
PROVIDERS: Emergency Provider Emergency Medicine; PCP Internal Medicine
DX: R55 Syncope and collapse (principal); E86.9 Volume depletion, unspecified; N28.9 Disorder of kidney and ureter, unspecified; E11.9 Type 2 diabetes mellitus without complications; E78.5 Hyperlipidemia, unspecified; I10 Essential (primary) hypertension; Z87.891 Personal history of nicotine dependence
CPT/HCPCS: 70450; 74176; 80053; 85025; 93005; 99285; J7040

== ENCOUNTER 2023-06-29 09:57 | Outpatient (CLI) | payer MEDICAID, SELFPAY ==
--- NOTE | 2023-06-29 10:00 | NM_ITS ---
WS: [id number] NUCLEAR MEDICINE GASTRIC STUDY CLINICAL INFORMATION: NAUSEA/VOMITING TECHNIQUE: Following oral ingestion of cooked egg mixed with 0.96 mCi technetium 99m sulfur colloid, anterior images of the stomach were obtained over the course of 90 minutes. Activity curve was perfor med over the course of 90 minutes with linear regression analysis. COMPARISON: None. FINDINGS: T1 half 177 minutes which is delayed (normal 45 to 110 minutes) 11% emptying at 60 minutes. 37% emptying at 120 minutes. IMPRESSION: Delayed gastric emptying suspicious for gastroparesis. *Normal median T1 half 90 minutes for solid egg meal (45-110 minutes). Delayed gastric retention is defined as 90% retained at 1 hour, 60% at 2 hours, 30% at 3 hours, and 10% at 4 hours (normal percent gastric retention is 37-90% at 1 hour, 30-60% at 2 hours, and 0-10% a t 4 hours).
== END 2023-06-29 09:58 | disposition home or self-care (01) ==
PROVIDERS: PCP Internal Medicine; Visit Provider Nurse Practitioner
DX: R11.2 Nausea with vomiting, unspecified (principal)
CPT/HCPCS: 78264; A9541

== ENCOUNTER → 2023-08-28 13:44 | Outpatient (BNVA) | payer MEDICAID, SELFPAY | PROVIDERS: PCP Internal Medicine; Visit Provider Podiatrist Foot & Ankle Surgery | DX: M76.62 Achilles tendinitis, left leg; E11.9 Type 2 diabetes mellitus without complications | CPT/HCPCS: 73630; 99203 ==

== ENCOUNTER → 2023-09-18 13:14 | Outpatient (BNVA) | payer MEDICAID, SELFPAY | PROVIDERS: PCP Internal Medicine; Visit Provider Podiatrist Foot & Ankle Surgery | DX: E11.9 Type 2 diabetes mellitus without complications; M76.62 Achilles tendinitis, left leg | CPT/HCPCS: 99213 ==

== ENCOUNTER → 2023-12-13 09:27 | Outpatient (BNVA) | payer MEDICAID, SELFPAY | PROVIDERS: PCP Nurse Practitioner; Referring Provider Nurse Practitioner; Visit Provider Anesthesiology Pain Medicine | DX: G89.29 Other chronic pain; M51.26 Other intervertebral disc displacement, lumbar region; M48.061 Spinal stenosis, lumbar region without neurogenic claudication; M47.816 Spondylosis without myelopathy or radiculopathy, lumbar region | CPT/HCPCS: 99204 ==

== ENCOUNTER 2024-01-07 06:00 | Outpatient (RCR) | payer MEDICAID, SELFPAY | END 2024-02-03 23:59 | disposition home or self-care (01) | LOC: GPT 06:00 | PROVIDERS: PCP Nurse Practitioner; Visit Provider Anesthesiology Pain Medicine | DX: M54.50 Low back pain, unspecified (principal); G89.29 Other chronic pain | CPT/HCPCS: 97161 ==

== ENCOUNTER → 2024-02-12 09:25 | Outpatient (BNVA) | payer MEDICAID, SELFPAY | PROVIDERS: PCP Nurse Practitioner; Visit Provider Anesthesiology Pain Medicine | DX: M48.061 Spinal stenosis, lumbar region without neurogenic claudication; M47.816 Spondylosis without myelopathy or radiculopathy, lumbar region | CPT/HCPCS: 99214 ==

== ENCOUNTER → 2024-02-27 12:43 | Outpatient (BNVA) | payer MEDICAID, SELFPAY | PROVIDERS: PCP Nurse Practitioner; Visit Provider Anesthesiology Pain Medicine | DX: M54.16 Radiculopathy, lumbar region (principal) | CPT/HCPCS: 64483; 64484; J1100; J3490 ==

== ENCOUNTER → 2024-03-25 09:59 | Outpatient (BNVA) | payer MEDICAID, SELFPAY | PROVIDERS: PCP Nurse Practitioner; Visit Provider Anesthesiology Pain Medicine | DX: M54.50 Low back pain, unspecified; M79.604 Pain in right leg; M79.605 Pain in left leg | CPT/HCPCS: 99214 ==

== ENCOUNTER → 2024-04-02 13:16 | Outpatient (BNVA) | payer MEDICAID, SELFPAY | PROVIDERS: PCP Nurse Practitioner; Visit Provider Anesthesiology Pain Medicine | DX: M54.16 Radiculopathy, lumbar region (principal) | CPT/HCPCS: 64483; 64484; J1100; J3490 ==

== ENCOUNTER → 2024-04-17 10:20 | Outpatient (BNVA) | payer MEDICAID, SELFPAY | PROVIDERS: PCP Nurse Practitioner; Visit Provider Anesthesiology Pain Medicine | DX: M47.816 Spondylosis without myelopathy or radiculopathy, lumbar region; M48.061 Spinal stenosis, lumbar region without neurogenic claudication | CPT/HCPCS: 99214 ==

== ENCOUNTER → 2025-01-14 13:04 | Outpatient (BNVA) | payer MEDICAID, SELFPAY | PROVIDERS: PCP Nurse Practitioner; Visit Provider Specialist | DX: M25.551 Pain in right hip (principal); M54.31 Sciatica, right side | CPT/HCPCS: 73502; 99204 ==

== ENCOUNTER → 2025-01-20 13:20 | Outpatient (BNVA) | payer MEDICAID, SELFPAY | PROVIDERS: PCP Nurse Practitioner; Visit Provider Orthopaedic Surgery | DX: M54.9 Dorsalgia, unspecified (principal); M43.16 Spondylolisthesis, lumbar region | CPT/HCPCS: 72110; 99204 ==

== ENCOUNTER 2025-01-26 14:56 | Outpatient (CLI) | payer MEDICAID, SELFPAY ==
--- NOTE | 2025-01-26 14:58 | MR_ITS ---
WS: [id number] MRI BRAIN WITH HIGH-RESOLUTION IMAGING THROUGH THE INTERNAL AUDITORY CANALS WITHOUT AND WITH CONTRAST HISTORY: SENSORINEURAL HEARING LOSS, worsening bilateral hearing loss. COMPARISON: 04/18/2011 TECHNIQUE: Multiplanar, multisequence imaging is performed through the brain. Additional 3 mm imaging performed in multiple planes through the internal auditory canal. Postcontrast imaging with 19 ml's of MultiHance. No acute intracranial hemorrhage, midline shift, edema or mass effect. Mild volume loss in the cerebrum and cerebellum with minimal change since the prior study. Mild small vessel ischemic disease has slightly progressed since the prior study. Scattered nonspecific T2 hyperintensities. No interval infarct since 2010. Ventricles and extra-axial spaces are normal. No inferior displacement of cerebellar tonsils. Clivus and pituitary gland are normal. Internal and external auditory canals: Unremarkable. Cranial nerves VII and VIII complexes: Unremarkable. No enhancement or mass. Cerebellopontine angles: Normal. Paranasal sinuses: Normal. Mastoid air cells: Bilateral small mastoid air cell effusions. Calvarium and scalp: Normal. Visualized [place] and dural venous sinuses demonstrate no abnormality. MR/MR iac's wo/w con* [id number] IMPRESSION: 1. Unremarkable MR IACs. No mass or signal abnormality. 2. Mild progression of scattered T2 and FLAIR signal hyperintensities througho ut the brain. This can be noted with small vessel ischemic disease, hypertensio n, migraines and smoking. 3. No large territory infarct. 4. Small bilateral mastoid air cell effusions.
[2025-01-26] MEDS: gadobenate dimeglumine 20 mL vial 18 ML IV (16:12)
== END 2025-01-26 14:57 | disposition home or self-care (01) ==
PROVIDERS: PCP Nurse Practitioner; Visit Provider Specialist
DX: H90.3 Sensorineural hearing loss, bilateral (principal); R93.0 Abnormal findings on diagnostic imaging of skull and head, not elsewhere classified; H74.8X3 Other specified disorders of middle ear and mastoid, bilateral; I67.89 Other cerebrovascular disease
CPT/HCPCS: 70553

== ENCOUNTER 2025-02-05 13:45 | Outpatient (CLI) | payer MEDICAID, SELFPAY ==
--- NOTE | 2025-02-05 13:45 | MR_ITS ---
WS: [id number] MRI LUMBAR SPINE NONCONTRAST TECHNIQUE: Sagittal T1, T2 and STIR imaging. Axial T1 and T2 imaging. CLINICAL INFORMATION: lumbar pain COMPARISON: MRI 2020 166 FINDINGS: Mild lumbar curve. No acute compression. Grade 1 anterolisthesis L4 on L5. Small disc protrusions in the cervical spine on life science research assistant imaging with mild central canal stenosis at C5-C6 and C6-C7. L1-L2: Mild annular bulging. Mild facet arthropathy. Slight narrowing the RIGHT subarticular recess. Foramina are patent. L2-L3: Mild annular bulging. Slight narrowing RIGHT subarticular recess. Mild facet arthropathy. Foramina are patent. L3-L4: Mild annular bulging with moderate central canal stenosis. Significant impingement subarticular recess LEFT greater than RIGHT. Moderate facet arthropathy. Foramina are patent. Small facet effusions. L4-L5: Grade 1 anterolisthesis L4 on L5. Moderate to severe central canal stenosis. Marked impingement on the LEFT greater than RIGHT subarticular recess. Severe LEFT foraminal narrowing with a LEFT foraminal protrusion impinges the exiting L4 nerve root. Mild RIGHT foraminal narrowing with a small RIGHT foraminal protrusion. Moderate facet arthropathy with small facet effusions. L5-S1: Small RIGHT foraminal protrusion impinges the proximal exiting RIGHT L5 nerve root with moderate RIGHT foraminal narrowing. Moderate facet arthropathy. Slight encroachment on the RIGHT S1 nerve root. LEFT foraminal is patent. Visualized pelvic bony structures: Normal. Paravertebral soft tissues: Normal. 3.1 cm RIGHT renal cyst. Visualized adrenal glands appear normal. Retroaortic LEFT renal vein. MR/MR lumbar spine wo con* [id number] IMPRESSION: 1. Grade 1 anterolisthesis L4 on L5 has progressed slightly compared to previo us. 2. Moderate to severe central canal stenosis L4-5 significantly progressed. Si gnificant impingement on the LEFT greater than RIGHT subarticular recess. 3. LEFT foraminal protrusion L4-5 with severe LEFT foraminal narrowing impinge s the exiting LEFT L4 nerve root. Advanced facet arthropathy at this level with small facet effusions. 4. Small RIGHT subarticular and proximal foraminal protrusion L5-S1 impinges t he proximal exiting RIGHT L5 nerve root. 5. Progressed moderate central canal stenosis L3-4 with impingement on the sub articular recess bilaterally.
== END 2025-02-05 13:46 | disposition home or self-care (01) ==
PROVIDERS: PCP Nurse Practitioner; Visit Provider Orthopaedic Surgery
DX: M48.061 Spinal stenosis, lumbar region without neurogenic claudication (principal); M43.16 Spondylolisthesis, lumbar region; M51.26 Other intervertebral disc displacement, lumbar region; R93.7 Abnormal findings on diagnostic imaging of other parts of musculoskeletal system; M47.896 Other spondylosis, lumbar region; M25.48 Effusion, other site; M51.27 Other intervertebral disc displacement, lumbosacral region; M43.8X6 Other specified deforming dorsopathies, lumbar region; M50.20 Other cervical disc displacement, unspecified cervical region; M48.02 Spinal stenosis, cervical region; M51.369 Other intervertebral disc degeneration, lumbar region without mention of lumbar back pain or lower extremity pain; M48.07 Spinal stenosis, lumbosacral region; M47.897 Other spondylosis, lumbosacral region; N28.1 Cyst of kidney, acquired; R93.89 Abnormal findings on diagnostic imaging of other specified body structures
CPT/HCPCS: 72148

== ENCOUNTER → 2025-03-03 13:34 | Outpatient (BNVA) | payer MEDICAID, SELFPAY | PROVIDERS: PCP Nurse Practitioner; Visit Provider Orthopaedic Surgery | DX: M43.16 Spondylolisthesis, lumbar region (principal); Z09 Encounter for follow-up examination after completed treatment for conditions other than malignant neoplasm | CPT/HCPCS: 99214 ==

== ENCOUNTER → 2025-03-23 13:52 | Outpatient (BNVA) | payer MEDICAID, SELFPAY | PROVIDERS: Referring Provider Orthopaedic Surgery; Visit Provider Anesthesiology Pain Medicine | DX: M54.9 Dorsalgia, unspecified (principal) | CPT/HCPCS: 99214 ==

== ENCOUNTER → 2025-04-14 13:40 | Outpatient (BNVA) | payer MEDICAID, SELFPAY | PROVIDERS: Visit Provider Anesthesiology Pain Medicine | DX: M47.816 Spondylosis without myelopathy or radiculopathy, lumbar region (principal); M54.9 Dorsalgia, unspecified | CPT/HCPCS: 64493; 64494; 64495; J1010; J3490; J9999 ==

== ENCOUNTER 2025-04-15 11:58 | Outpatient (RCR) | payer MEDICAID, SELFPAY | END 2025-05-04 23:59 | disposition home or self-care (01) | LOC: SPT 11:58 | PROVIDERS: Visit Provider Orthopaedic Surgery | DX: M54.9 Dorsalgia, unspecified (principal); G89.29 Other chronic pain | CPT/HCPCS: 97110; 97161 ==

== ENCOUNTER → 2025-04-28 08:06 | Outpatient (BNVA) | payer MEDICAID, SELFPAY | PROVIDERS: Visit Provider Anesthesiology Pain Medicine | DX: M54.9 Dorsalgia, unspecified (principal) | CPT/HCPCS: 99214 ==

== ENCOUNTER 2025-05-05 05:00 | Outpatient (RCR) | payer MEDICAID, SELFPAY | END 2025-06-04 23:59 | disposition home or self-care (01) | LOC: SPT 05:00 | PROVIDERS: PCP Nurse Practitioner; Visit Provider Orthopaedic Surgery | DX: M54.9 Dorsalgia, unspecified (principal); G89.29 Other chronic pain | CPT/HCPCS: 97110 ==

== ENCOUNTER → 2025-05-06 13:55 | Outpatient (BNVA) | payer MEDICAID, SELFPAY | PROVIDERS: PCP Nurse Practitioner; Visit Provider Anesthesiology Pain Medicine | DX: M47.816 Spondylosis without myelopathy or radiculopathy, lumbar region (principal); M54.9 Dorsalgia, unspecified | CPT/HCPCS: 64493; 64494; 64495; J3490; J9999 ==

== ENCOUNTER → 2025-05-19 08:45 | Outpatient (BNVA) | payer MEDICAID, SELFPAY | PROVIDERS: PCP Nurse Practitioner; Visit Provider Anesthesiology Pain Medicine | DX: M54.9 Dorsalgia, unspecified (principal) | CPT/HCPCS: 99214 ==

== ENCOUNTER → 2025-06-02 14:22 | Outpatient (BNVA) | payer MEDICAID, SELFPAY | PROVIDERS: PCP Nurse Practitioner; Visit Provider Anesthesiology Pain Medicine | DX: M47.816 Spondylosis without myelopathy or radiculopathy, lumbar region (principal); M54.9 Dorsalgia, unspecified; E11.9 Type 2 diabetes mellitus without complications; Z01.818 Encounter for other preprocedural examination | CPT/HCPCS: 36416; 64635; 64636; J1100; J9999 ==

== ENCOUNTER 2025-06-05 05:00 | Outpatient (RCR) | payer MEDICAID, SELFPAY | END 2025-06-26 08:56 | disposition home or self-care (01) | LOC: SPT 05:00 | PROVIDERS: PCP Nurse Practitioner; Visit Provider Orthopaedic Surgery | DX: M54.50 Low back pain, unspecified (principal); G89.29 Other chronic pain | CPT/HCPCS: 97110 ==

== ENCOUNTER → 2025-06-24 15:04 | Outpatient (BNVA) | payer MEDICAID, SELFPAY | PROVIDERS: PCP Nurse Practitioner; Visit Provider Anesthesiology Pain Medicine | DX: M47.816 Spondylosis without myelopathy or radiculopathy, lumbar region (principal) | CPT/HCPCS: 64635; 64636; J1100; J9999 ==

== ENCOUNTER → 2025-07-07 08:47 | Outpatient (BNVA) | payer MEDICAID, SELFPAY | PROVIDERS: PCP Nurse Practitioner; Visit Provider Anesthesiology Pain Medicine | DX: M54.9 Dorsalgia, unspecified (principal) | CPT/HCPCS: 99214 ==

== ENCOUNTER → 2025-08-20 13:05 | Outpatient (BNVA) | payer MEDICAID, SELFPAY | PROVIDERS: PCP Nurse Practitioner; Visit Provider Podiatrist Foot & Ankle Surgery | DX: M79.671 Pain in right foot (principal); M79.672 Pain in left foot; E11.42 Type 2 diabetes mellitus with diabetic polyneuropathy; M76.61 Achilles tendinitis, right leg | CPT/HCPCS: 73630; 99214 ==

== ENCOUNTER → 2025-09-03 12:56 | Outpatient (BNVA) | payer MEDICAID, SELFPAY | PROVIDERS: PCP Nurse Practitioner; Visit Provider Podiatrist Foot & Ankle Surgery | DX: E11.42 Type 2 diabetes mellitus with diabetic polyneuropathy (principal); M76.61 Achilles tendinitis, right leg | CPT/HCPCS: 99214 ==

== ENCOUNTER 2025-09-22 14:57 | Outpatient (CLI) | payer MEDICAID, SELFPAY ==
--- NOTE | 2025-09-22 15:15 | MR_ITS ---
WS: [id number] MRI RIGHT ANKLE WITHOUT CONTRAST. COMPARISON: Radiographs 08/20/2025 Multiplanar, multisequence imaging is performed without contrast. Achilles tendon: Focal insertion site tear of the Achilles tendon measures 5 mm in width. This tear is associated with an enthesopathy from the calcaneus. Enthesopathy from the posterior calcaneus measures 10 mm in length. There is additional split tear centered 2.0 cm from the insertion site within the Achilles tendon. There is additional tendinopathy surrounding the split tear. The more proximal tendon is thin but intact. No significant amount of fluid in the retrocalcaneal bursa. 7 mm enthesopathy at the plantar fascia insertion site to the calcaneus. No acute fractures or marrow edema. No talar dome osteochondral lesion. No joint effusion. Peroneus tendons, posterior tibialis tendon, flexor hallucis longus and flexor digitorum longus are normal. Normal anterior tibialis tendon. Anterior inferior and posterior inferior tibiofibular ligaments are normal. ATFL and PTFL are appropriate and intact. There is a small amount of fluid adjacent to the ATFL. Abnormal signal within the deltoid ligament. Superficial and deep ligament appear appropriately oriented but the amount of T2 striations is abnormal and probably related to a prior injury. No acute fracture. Spring ligament is intact and normal. Calcaneofibular ligament is normal. Hypertrophic osteophytes along the dorsal surface of the midfoot. There is mild flattening of the midfoot. No soft tissue masses or edema. Normal appearance of the sinus Tarsi. MR/MR ankle RT wo con* [id number] IMPRESSION: 1. Insertion site tear of Achilles tendon measures 5 mm in width. 2. Additional split tear in the Achilles tendon centered 2.0 cm from the inser tion site to the calcaneus. No full-thickness tear. 3. Achilles tendinopathy involving the distal 2 to 3 cm. 4. Large enthesopathies involving the posterior calcaneus and the insertion si te of the plantar fascial. 5. Midfoot osteoarthritic changes. 6. Remote injury with healing of the deltoid ligament.
== END 2025-09-22 14:58 | disposition home or self-care (01) ==
LOC: RAD 14:58
PROVIDERS: PCP Nurse Practitioner; Visit Provider Podiatrist Foot & Ankle Surgery
DX: S86.011A Strain of right Achilles tendon, initial encounter (principal); X58.XXXA Exposure to other specified factors, initial encounter
CPT/HCPCS: 73721

== ENCOUNTER → 2025-10-06 09:15 | Outpatient (BNVA) | payer MEDICAID, SELFPAY | PROVIDERS: PCP Nurse Practitioner; Visit Provider Podiatrist Foot & Ankle Surgery | DX: E11.42 Type 2 diabetes mellitus with diabetic polyneuropathy (principal); M76.61 Achilles tendinitis, right leg; M67.971 Unspecified disorder of synovium and tendon, right ankle and foot; M19.071 Primary osteoarthritis, right ankle and foot; S86.019A Strain of unspecified Achilles tendon, initial encounter; S86.011A Strain of right Achilles tendon, initial encounter; X58.XXXA Exposure to other specified factors, initial encounter | CPT/HCPCS: 99213; 99214 ==

== ENCOUNTER → 2025-10-14 09:50 | Outpatient (BNVA) | payer MEDICAID, SELFPAY | PROVIDERS: PCP Nurse Practitioner; Visit Provider Anesthesiology Pain Medicine | DX: M54.16 Radiculopathy, lumbar region (principal); E11.9 Type 2 diabetes mellitus without complications | CPT/HCPCS: 36416; 64483; 64484; J1100; J3490; J9999 ==